=== PATIENT | male | born 1970 | race Caucasian/White ===

== ENCOUNTER → 2022-11-22 | Outpatient (CLI) | payer OTHER ==
--- NOTE | 2022-11-24 14:27 | US ---
EXAMINATION TYPE: US kidneys/renal and bladder DATE OF EXAM: 11/22/2022 COMPARISON: NONE CLINICAL INDICATION: Male, 52 years old with history of R31.9 Hematuria; hematuria EXAM MEASUREMENTS: Right Kidney: 11.6 x 4.9 x 5.2 cm Left Kidney: 13.2 x 6.0 x 5.6 cm Right Kidney: No hydronephrosis or masses seen Left Kidney: Anechoic area lower pole 1.5 x 2.1 x 1.5 cm. Finding can be compatible with a cyst. Fol low-up is recommended. Bladder: anechoic Bilateral Jets seen: yes IMPRESSION: 1. Inferior pole left renal cyst. Follow-up exam in 6 months is recommended.
== END | disposition home or self-care (01) ==
LOC: RADUSWWP 15:32
PROVIDERS: ATTEND Family Medicine
DX: N28.1 Cyst of kidney, acquired (principal); R31.9 Hematuria, unspecified
CPT/HCPCS: 76770

== ENCOUNTER → 2022-11-25 | Outpatient (CLI) | payer OTHER ==
--- NOTE | 2022-11-25 10:10 | CT ---
EXAMINATION TYPE: CT abdomen wo/w con DATE OF EXAM: 11/25/2022 COMPARISON: None HISTORY: hematuria CT DLP: 2403 mGycm CONTRAST: CT scan of the abdomen is performed with Oral Contrast and with IV Contrast, patient injected with 10 0 mL of Isovue 300. FINDINGS: LUNG BASES-: No visible nodule. No infiltrate. LIVER/GB: No calcified gallstones. No space occupying hepatic lesion. Biliary tree is of normal ca liber. PANCREAS: No inflammation. No distinct mass. SPLEEN: No splenic enlargement. No lesion seen. ADRENALS: No nodule. No thickening. KIDNEYS/BLADDER: No hydronephrosis. No nephrolithiasis. No distinct renal mass. Urinary bladder g rossly unremarkable. BOWEL: Normal appendix. Normal bowel caliber. No inflammation. LYMPH NODES: No greater than 1cm abdominal or pelvic lymph nodes are appreciated. AORTA: No significant abnormality. OSSEOUS STRUCTURES: No significant abnormality is seen. OTHER: Fat-containing umbilical hernia measures 8.8 x 3.9 cm. IMPRESSION: 1. No significant abnormality to account for the patient's symptoms.
== END | disposition home or self-care (01) ==
LOC: RADCTMAIN 08:51
PROVIDERS: ATTEND Family Medicine
DX: R31.9 Hematuria, unspecified (principal)
CPT/HCPCS: 74170; Q9967